=== PATIENT | female | born 1940 | race Caucasian/White ===

== ENCOUNTER → 2017-05-21 | Outpatient (CLI) | payer OTHER, MEDICARE | LOC: BMCIMAGING 11:38 | PROVIDERS: ATTEND Family Medicine | DX: Z13.820 Encounter for screening for osteoporosis (principal); M81.0 Age-related osteoporosis without current pathological fracture ==

== ENCOUNTER → 2017-08-11 | Outpatient (CLI) | payer OTHER, MEDICARE | LOC: BHFA 15:30 | PROVIDERS: ATTEND Internal Medicine | DX: I34.0 Nonrheumatic mitral (valve) insufficiency (principal) ==

== ENCOUNTER → 2017-10-13 | Outpatient (CLI) | payer OTHER, MEDICARE | LOC: BHFA 11:30 | PROVIDERS: ATTEND Internal Medicine Cardiovascular Disease | DX: R07.9 Chest pain, unspecified (principal) ==

== ENCOUNTER 2018-06-04 16:05 | Inpatient (IN) | payer OTHER, MEDICARE ==
--- NOTE | 2018-06-04 16:32 | EDPHY ---
General Time Seen by Provider: 06/04/18 16:15 Narrative: CHIEF COMPLAINT: Knee pain, swelling HISTORY OF PRESENT ILLNESS: Patient presents with complaints of left knee pain, left hip pain, left ankle pain and swelling of the leg. She originally injured her knee on the 25 of May. She was walking her dog, when she became entangled in the lesion of the dog and fell forward. She landed on her left knee while bent. She denies head strike or loss of consciousness. No numbness or tingling. No weakness. She had mild pain over the following few days. She then contacted her physician was evaluated on the 31 of May, with x-ray and DVT studies that reportedly negative for DVT. She did have a superficial thrombophlebitis of the gastroc vein. She says that she has not had improvement, that she has been pursuing MRI of the left knee. She comes in today because she has an abrasion over the left side of the proximal tib-fib that now seems red and possibly infected her. She contacted her primary care physician, who sent her here. She reports that she has been unable to ambulate due to pain left hip bagel.. no fever. No chills. No chest pain or shortness of breath. No other associated constraints or modifying factors for ESTABLISHED ORTHOPEDIST: None REVIEW OF SYSTEMS: Ten systems reviewed and are negative unless otherwise noted in the HPI PAST MEDICAL HISTORY: Prediabetic PAST SURGICAL HISTORY: No recent surgeries SOCIAL HISTORY: Nonsmoker. Lives independently with her spouse. FAMILY HISTORY: Noncontributory EXAMINATION General Appearance: Alert, no distress HEENT: Normocephalic. Atraumatic pupils equal round reactive to light. Cardiovascular: Symmetric DP and PT pulses 2+. Neurological: A&O, light sensory symmetric lower extremities, ankle, knee and great toe strength symmetric. Skin: Warm and dry, no rash. There are 2 small areas of abrasion over the lateral proximal fibula and anterior tibia. These measure approximately 2 cm diameter. There is minimal surrounding erythema. No purulence. No warmth. No fluctuance. No cellulitis appreciated Extremities: Mild tenderness about the left knee, left greater trochanter and the ankle laterally. Unable to range the left hip. She will not fully bear weight on this at this time. No compartment syndrome. There is moderate, 1+ pitting edema to the entire left lower extremity below the knee. Psychiatric: Mood and affect normal DIFFERENTIAL DIAGNOSES: Including but not limited to DVT, superficial thrombophlebitis, sprain, strain, meniscus injury, ACL injury, hip fracture, hip strain, ankle fracture, hip sprain MDM: 4:20 p.m. Ongoing pain and swelling of left lower extremity with patient concern for infection of abrasions that she sustained on the 25 of May. There is minimal surrounding erythema with no obvious signs of infection or cellulitis. I have reviewed the previous x-ray and I have ordered x-ray of the hip and ankle as she has ongoing pain with with no x-ray of these areas yet. She is also unable to ambulate. The DVT study did reveal superficial thrombophlebitis but no DVT study. She has been taking anti-inflammatories. 4:30 p.m. X-ray read by me reveals left femoral neck fracture. Ankle x-ray pending. At this point I have ordered laboratory studies, IV placement she will need admission to the hospital. I will consult Orthopedics and discussed with hospitalist. 4:40 p.m. Case discussed with hospitalist Dr. Eden. he will be admitted to his service. He agrees with repeat of the Doppler study left lower extremity. He would like to discuss further with orthopedic surgeon regarding Lovenox therapy. 5:[address] Cope is at bedside examine the patient. He plans for surgical intervention tomorrow morning as she has NPO status of 4:00 p.m. Today. He agrees that Lovenox is reasonable at this time. Dr. Eden has requested 40 mg subcu. Should she have a DVT study positive, he will add the additional necessary Lovenox. She has been admitted in stable condition to his service. Ultrasound is at bedside at this time. She is in no acute distress. Laboratory studies have been obtained but are pending. SUPERVISION: Patient was independently examined, but I discussed the case with my secondary supervising physician Dr. Sepulveda - History Smoking Status: Former smoker - Objective Vital Signs: Initial Vital Signs Temperature (C) 98.6 F 06/04/18 16:10 Heart Rate 76 06/04/18 16:10 Respiratory Rate 18 06/04/18 16:10 Blood Pressure 157/85 H 06/04/18 16:10 O2 Sat (%) 95 06/04/18 16:10 O2 Delivery Mode Room Air Allergies/Adverse Reactions: cortisone [Cortisone] Allergy (Verified 06/04/18 16:10) Home Medications: Medication Instructions Recorded Naproxen Sodium [Aleve 220 MG (*)] 220 mg PO Q8H 06/04/18 Medications Given: Ondansetron HCl (Zofran Odt) 4 mg PO Q4HRS PRN PRN Reason: Nausea/Vomiting, Use 1st Stop: 12/01/18 18:13 Last Admin: 06/04/18 21:06 Dose: 4 mg Oxycodone HCl (Oxycodone Ir) 5 - 10 mg PO Q3HRS PRN PRN Reason: Pain, Severe Able to Take PO Stop: 06/14/18 18:13 Last Admin: 06/05/18 01:24 Dose: 2.5 mg Discontinued Medications Acetaminophen (Tylenol) 1,000 mg PO Q8H ZIGGY Stop: 12/01/18 18:14 Last Admin: 06/05/18 01:21 Dose: 1,000 mg Cephalexin HCl (Keflex) 500 mg PO EDNOW ONE PRN Reason: Protocol Stop: 06/04/18 16:36 Last Admin: 06/04/18 16:55 Dose: 500 mg Enoxaparin Sodium (Lovenox) 40 mg SC EDNOW ONE Stop: 06/04/18 17:16 Last Admin: 06/04/18 18:16 Dose: 40 mg Morphine Sulfate (Morphine) 2 mg IVP EDNOW ONE Stop: 06/04/18 17:18 Last Admin: 06/04/18 17:20 Dose: 2 mg Departure - Departure Disposition: [facility] Clinical Impression: Fracture of femoral neck, left, closed Qualifiers: Encounter type: initial encounter Qualified Code(s): S72.002A - Fracture of unspecified part of neck of left femur, initial encounter for closed fracture Thrombophlebitis leg superficial Qualifiers: Laterality: left Qualified Code(s): I80.02 - Phlebitis and thrombophlebitis of superficial vessels of left lower extremity Condition: Good
[2018-06-04] MEDS ORDERED: CEPHALEXIN 500 MG CAP PO ONE (16:35)
[2018-06-04] MEDS ORDERED: ENOXAPARIN 40 MG/0.4 ML SYR SC ONE (17:15)
[2018-06-04 17:40] LABS: PLATELET COUNT 198 10^3/uL (150-400)
[2018-06-04 17:52] LABS: INR 1.02 (0.83-1.16); PROTIME(PATIENT) 13.6 SEC (12.0-15.0)
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
[2018-06-04] MEDS ORDERED: ONDANSETRON DISINTEGRATING 4 MG TAB PO PRN (18:14)
[2018-06-04] MEDS ORDERED: ONDANSETRON 4 MG/2 ML VIAL IVP PRN (18:14)
[2018-06-04] MEDS: ACETAMINOPHEN 500 MG TAB PO SCH (18:39)
--- NOTE | 2018-06-04 19:13 | GHP ---
DATE OF ADMISSION: 06/04/2018 HISTORY OF PRESENT ILLNESS: A 78-year-old female with history of prediabetes, mitral valve prolapse, who presents with mechanical fall. She had a mechanical fall on May 25 while walking the dog. She landed on her knee. She was able to walk okay after that, but was having increasing pain with a mbulation and ultimately a couple days after that, she was leaning over to move her milk box and she thought she might have pulled or strained a muscle and has really been struggling to walk since then. She has been using a walker. Finally, she presents today with ongoing pain and diagnosed with a le ft femoral neck fracture. She had increasing swelling in her left leg. She has not had fever, chill s, not had chest pain, cough, or sputum. She does not have a history of exertional chest pain or exe rtional intolerance. The patient saw her primary care physician. She had an ultrasound for the swel ling showing superficial clot. REVIEW OF SYSTEMS: Complete 10-point review of systems conducted and negative except as noted in the HPI. PAST MEDICAL HISTORY: Prediabetes, mitral valve prolapse. ALLERGIES: Cortisone. HOME MEDICATIONS: Naproxen. SOCIAL HISTORY: No tobacco, no alcohol. She is possibly a hoarder on the basis of what her said. FAMILY HISTORY: Reviewed and unremarkable. PHYSICAL EXAMINATION: PRESENTING VITALS: Temp 37, blood pressure 167/85, pulse 76, breathing 18 jean marie es a minute, 95% on room air. GENERAL: In no acute distress. HEENT: Sclerae anicteric. Oropharyn x clear. Mucous membranes are moist. NECK: Supple. No lymphadenopathy or JVD. LUNGS: Clear to a uscultation bilaterally. HEART: S1, S2 without murmur. ABDOMEN: Soft, nontender, nondistended. E XTREMITIES: Left lower extremity is externally rotated and shortened. There is significant edema. There is intact dorsalis pedis pulse. Both her feet are fairly dirt-encrusted. Nurse thought it pos sibly smelled like stool. NEURO: Nonfocal. SKIN: Without rash. LABORATORY/IMAGING DATA: White count 5, hematocrit 35, platelets are 198,000. INR is 1. Sodium 133 , potassium 4.3, chloride 95, bicarb 32, BUN 20, creatinine 0.6, glucose 123. Hip x-ray shows left i ntertrochanteric hip fracture or a left femoral neck fracture. Chest x-ray interpreted by me shows n o acute cardiopulmonary disease. Ankle x-ray is unremarkable. I discussed the case with EFRAIN Martinez, as well as Dr. Amos Cope. ASSESSMENT/PLAN: A 78-year-old female with hip fracture with delayed diagnosis: 1. Hip fracture. The patient will go to the operating room tomorrow. She has received a dose of Lo venox tonight given her longstanding hip fracture and risk for venous thrombosis. This was discussed with Dr. Cope. 2. Preoperative cardiac evaluation. EKG is pending when the patient is able to complete greater priti n 4 METs without any cardiopulmonary symptoms and can proceed to the OR without further workup or int ervention. 3. Metabolic alkalosis. This is uncertain etiology. Will follow. 4. Pain. Scheduled Tylenol, p.r.n. oxycodone. 5. Superficial clot. She had a repeat ultrasound here showing no deep vein thrombosis, superficial thrombus of the left soleal vein. DISPOSITION: Inpatient status. /[id number]/MODL
[2018-06-04] MEDS: oxyCODONE IR 5 MG TAB PO PRN (21:06)
[2018-06-05] MEDS: ACETAMINOPHEN 500 MG TAB PO SCH (01:21)
[2018-06-05] MEDS: oxyCODONE IR 5 MG TAB PO PRN (01:24)
[2018-06-05 04:48] LABS: PLATELET COUNT 202 10^3/uL (150-400)
--- NOTE | 2018-06-05 05:15 | GCON ---
DATE OF CONSULTATION: 06/04/2018 REASON FOR CONSULTATION: Left femoral neck fracture. HPI: The patient is a 78-year-old female who tripped and fell while walking her dog about 10 days ag o. She is having slowly worsening pain since then, difficulty bearing weight and she presented to [facility] emergency room this afternoon. X-rays were obtained, which showed a femoral neck fracture. PRIOR MEDICAL HISTORY: Mitral valve prolapse, prediabetes. ALLERGIES: Cortisone. HOME MEDICATIONS: Naproxen. SOCIAL HISTORY: Denies tobacco or alcohol. REVIEW OF SYSTEMS: No shortness of breath or chest pain. PHYSICAL EXAM: She appears dirty. Feet are crusted in dirt. VITAL SIGNS: In the emergency room are 157/85, heart rate 76, respiratory rate is 18. She is saturating 95% on room air. Temperature is 3 7. GENERAL: Alert and oriented x3. She answers questions appropriately. HEENT: Normocephalic, atr aumatic. Extraocular muscles are intact. CHEST: Clear to auscultation. CARDIOVASCULAR: No murmur . ABDOMEN: Soft, nontender, nondistended. There is no hepatosplenomegaly. EXTREMITIES: Left lowe r extremity externally rotated, shortened. There is some lower extremity edema. Calf is nontender. She is moving her foot well. 1+ dorsalis pedis, posterior tibial pulses. X-RAYS: Two views of the hip: Displaced femoral neck fracture. ASSESSMENT: Left displaced femoral neck fracture. PLAN: She ate just before arriving to the ER so we will plan on surgery tomorrow with a bipolar hip arthroplasty. Risks and benefits including infection, blood clots, were discussed. I reviewed the c ase with Dr. Eden. She does have a superficial phlebitis. We are going to give her a dose of 40 m g of Lovenox tonight, hold it tomorrow, and then she can resume that on postoperative day #1. /[id number]/MODL
[2018-06-05] MEDS ORDERED: NS 1,000 ML IV SCH (07:00)
--- NOTE | 2018-06-05 08:42 | HOSPPROG ---
Hospitalist Progress Note Assessment/Plan: [facility] Patient Name: LEYLA PARKER Rpt#: [id number] Unit Number: [id number] Attending/ER Physician: Cesario Eden MD Patient Type: ADM IN Adm Date/Source: 06/04/18 EMR Discharge Date: Primary Carrier: MEDICARE INPATIENT Patient is a 78 y/o female w hx of prediabetes, MVP who had a mechanical fall. She was walking her dog on May 25 and fell. Her pain was ongoing and she came to the ER and noted to have a left femoral neck fx. Today is my first encounter w the patient, chart reviewed. *left hip fx -OR today with Dr Cope -NPO -fluids -patient says she does well w Tylenol and codeine for pain, other narcotics make her confused *mechanical fall -PT and OT to see her *metabolic alkalosis -check labs in a.m. *superficial thrombus soleal vein on left -she will be on Lovenox post op *dvt prophlaxis: LMWH *plan: recheck labs in a.m., order Tylenol w Codeine, bowel protocol Subjective: Leyla Coburn said pain is ongoing, but not severe. Objective: Vital Signs Temp Pulse Resp BP Pulse Ox 36.8 C 69 15 118/73 97 06/05/18 07:53 06/05/18 07:53 06/05/18 07:53 06/05/18 07:53 06/05/18 07:53 Laboratory Results 06/05/18 04:35 06/05/18 04:35 06/04/18 06/05/18 06/06/18 05:59 05:59 05:59 Output Total 275 350 Balance -275 -350 PT 13.6 SEC (12.0-15.0) 06/04/18 17:15 INR 1.02 (0.83-1.16) 06/04/18 17:15 - Physical Exam Constitutional: no apparent distress, appears nourished, other (slender) Eyes: PERRL Ears, Nose, Mouth, Throat: hearing normal Cardiovascular: regular rate and rhythym Respiratory: no respiratory distress Gastrointestinal: normoactive bowel sounds Skin: warm Musculoskeletal: other (left leg shortened and externally rotated) Neurologic: AAOx3 Psychiatric: interacting appropriately ICD10 Worksheet Patient Problems: Problems Problem Status Onset Fracture of femoral neck, left, closed Acute Thrombophlebitis leg superficial Acute
--- NOTE | 2018-06-05 11:46 | PDMN ---
Medical Necessity Medical necessity: Pt meets IP criteria per MD; est los >2 mn for eval/tx of L hip fx s/p mechanical fall w/metabolic acidosis & superficial thrombus; admit for further monitoring, pre-op cardiac eval, Ortho consult w/surgical intervention, NPO status, IVFs, pain management & therapies; comorbid advanced age, MV prolapse; per H&P & order 06/04/18
--- NOTE | 2018-06-05 12:40 | PDANEPAE ---
ANE History of Present Illness L hip traumatic fx here for ORIF ANE Past Medical History - Cardiovascular History Hx Hypertension: No Hx Arrhythmias: No Hx Chest Pain: No Hx Coronary Artery / Peripheral Vascular Disease: No Cardiovascular History Comment: MVP - Pulmonary History Hx COPD: No Hx Oxygen in Use at Home: No Hx Sleep Apnea: No Sleep Apnea Screening Result - Last Documented: Negative - Endocrine History Hx Diabetes: No - Cancer History Cancer History Comment: anemia - Chronic Pain History Chronic Pain: No ANE Review of Systems Review of Systems: - Exercise capacity Exercise capacity: >=4 METS ANE Patient History - Allergies Allergies/Adverse Reactions: cortisone [Cortisone] Allergy (Verified 06/04/18 16:10) - Home Medications Home medications: home medication list seen and reviewed Home Medications: Naproxen Sodium [Aleve 220 MG (*)] 220 mg PO Q8H 06/04/18 [Last Taken 06/04/18 18:00] - NPO status NPO Status: no food or drink >8 hours NPO Since - Liquids (Date): 06/04/18 NPO Since - Liquids (Time): 00:00 NPO Since - Solids (Date): 06/04/18 NPO Since - Solids (Time): 00:00 - Anes Hx Anes Hx: no prior problems - Smoking Hx Smoking Status: Former smoker - Alcohol Use Alcohol Use: Rarely - Family Anes Hx Family Anes Hx: none ANE Labs/Vital Signs - Labs Result Diagrams: 06/05/18 04:35 06/05/18 04:35 - Vital Signs Blood Pressure: 118/73 Heart Rate: 69 Respiratory Rate: 15 O2 Sat (%): 97 Height: 170.18 cm Weight: 58.967 kg ANE Physical Exam - Airway Neck exam: FROM Mallampati Score: Class 2 Mouth exam: normal dental/mouth exam - Pulmonary Pulmonary: no respiratory distress, clear to auscultation - Cardiovascular Cardiovascular: regular rate and rhythym, no murmur, rub, or gallop - ASA Status ASA Status: II ANE Anesthesia Plan Anesthesia Plan: general endotracheal anesthesia, GA w LMA
[2018-06-05] MEDS ORDERED: BUPIVACAINE/EPI 0.5% 30 ML SDV ONE (12:45)
[2018-06-05] MEDS ORDERED: ceFAZolin 1 GM/5 ML SYR ONE (12:46)
[2018-06-05] MEDS ORDERED: fentaNYL 100 MCG/2 ML INJ ONE ×2 (12:58→15:00)
[2018-06-05] MEDS ORDERED: PROPOFOL 200 MG/20 ML VIAL ONE (12:58)
[2018-06-05] MEDS ORDERED: ceFAZolin 2 GM/DEXTROSE 100 ML IV ONE (13:04)
[2018-06-05] MEDS ORDERED: CEFAZOLIN 2 GM/DEXTROSE/100 ML BAG IV ONE (13:06)
[2018-06-05] MEDS ORDERED: DEXAMETHASONE 4 MG/ML VIAL ONE (14:15)
[2018-06-05] MEDS ORDERED: ONDANSETRON 4 MG/2 ML VIAL ONE ×2 (14:15→15:09)
[2018-06-05] MEDS ORDERED: SUGAMMADEX SODIUM 200 MG/2 ML VIAL IVP ONE (14:22)
[2018-06-05] MEDS ORDERED: ACETAMINOPHEN 500 MG TAB PO PRN (14:46)
[2018-06-05] MEDS ORDERED: oxyCODONE IR 5 MG TAB PO PRN (14:46)
[2018-06-05] MEDS ORDERED: DEXAMETHASONE 4 MG/ML VIAL IVP PRN (14:46)
[2018-06-05] MEDS ORDERED: NALOXONE HCL 0.4 MG/ML INJ IVP PRN (14:46)
[2018-06-05] MEDS ORDERED: ONDANSETRON 4 MG/2 ML VIAL IVP PRN (14:46)
[2018-06-05] MEDS ORDERED: HYDROCODONE/APAP 5/325 TAB PO PRN (14:46)
[2018-06-05] MEDS ORDERED: fentaNYL 100 MCG/2 ML INJ IVP PRN (14:46)
--- NOTE | 2018-06-05 14:47 | POSTANESTH ---
Post Anesthetic Evaluation Cardiovascular Status: Normal, Stable, Similar to Pre-Op Cond Respiratory Status: Normal, Stable, Similar to Pre-op Cond. Level of Consciousness/Mental Status: Can Participate in Eval, Alert and Oriented Pain Control: Adequate, Prn Tx Ordered Nausea/Vomiting Control: Adequate, Prn Tx Ordered Complications Possibly Related to Anesthesia: None Noted
--- NOTE | 2018-06-05 14:52 | POSTOPPROG ---
Post Op Note Date of Operation: 06/05/18 Surgeon: Amos Cope Nutritionalist: feroz blankenship Anesthesiologist: Dinah Anesthesia: GET(General Endotracheal) Pre-op Diagnosis: LT fem neck fracture Post-op Diagnosis: same Indication: displaced hip fx Procedure: LT hemiarthroplasty Findings: displaced fem neck fx Inf/Abcess present in the surg proc area at time of surgery?: No EBL: 100-500 (200 ml) Complications: none
[2018-06-05] MEDS ORDERED: HYDROmorphONE/DILAUDID 1 MG/ML INJ ONE (15:00)
[2018-06-05] MEDS: HYDROmorphONE/DILAUDID 1 MG/ML INJ IVP PRN ×2 (15:03→15:11)
--- NOTE | 2018-06-05 15:18 | GOP ---
DATE OF OPERATION: 06/05/2018 SURGEON: Amos Cope MD UNIFIED COMMUNICATIONS ARCHITECT: Dr. Yehuda Marin. ANESTHESIA: Dr. Robert Nix, general. PREOPERATIVE DIAGNOSIS: Left femoral neck fracture. POSTOPERATIVE DIAGNOSIS: Left femoral neck fracture. PROCEDURE PERFORMED: Hemiarthroplasty, left hip. FINDINGS: ESTIMATED BLOOD LOSS: 200 mL. DESCRIPTION OF PROCEDURE: After appropriate informed consent was obtained, patient taken to the oper ating room, placed supine on the operating table. Time-out was performed. Patient was identified. Correct site was identified. Matched the radiographs that were available in the room. She received 2 g of Ancef preoperatively. Following the induction of general endotracheal tube anesthesia, she wa s positioned in the lateral decubitus position, right side down, on the PEG board. All bony prominen albert well padded. Left hip was prepped and draped in usual sterile fashion. I made a standard manager labor delivery ior incision. Incised the soft tissues. Bleeding was controlled with electrocautery. ITB was incis ed as was the fascia overlying the gluteal muscles. I bluntly dissected down to the external rotator s. The hip was put on slight tension. The external rotators were taken down, tagged for later repai r. The femoral neck fracture was freshened with a saw blade. Head and neck fragments were removed. The wound was irrigated. The acetabulum sized to a size 45. We then broached the femoral canal and broached up to a size 4. Trialed 26 head. This gave us good stability, good jewish of leg erin gths. Trial implants were all removed. The femoral canal incision was irrigated. We then tapped th e final stem into place. Placed the bipolar ball. Reduced the hip a final time. Again good stabili ty leg lengths were equal. The wound was irrigated a final time. The external rotators were repaire d back to the greater trochanter using #2 FiberWire. Superficial layers closed with 0 Vicryl, follow ed by 2-0 Vicryl and skin krystal. I instilled 20 mL of 0.5% Marcaine with epinephrine on the incisi on. Sterile dressing was applied. Abductor wedge was applied. Patient was awakened from anesthesia , taken to recovery room in satisfactory condition. There were no immediate intraoperative complicat ions. James Marin's assistance was required throughout the entire case. COMPLICATIONS: None. DRAINS: None. IMPLANTS USED: A La [place]olade II, 127 degree femur with size 4 head and a 45 outer diameter cup. HISTORY: Leyla Coburn is a 78-year-old female, who fell about 10 days ago while walking her dog. She horner s been at home wandering around. The pain got worse. She presented to the emergency department last evening. She had just eaten before coming in. Found to have a femoral neck fracture. Decision was made to proceed with a bipolar hemiarthroplasty in the morning. /[id number]/MODL
--- NOTE | 2018-06-05 15:37 | ASMTLACE ---
HYUN Acuity / Level of Answers: Yes Care: Did the patient have an inpatient admission? Comorbidities - select Answers: Diabetes (uncontrolled or all that apply controlled) Other Notes: Mitral valve prolapse # of Emergency department Answers: 1-2 visits in the last 6 months Social determinants Answers: Mental health diagnosis (anxiety, depression, pers onality disorders, etc.) Score: 9 Date Signed: 06/05/2018 03:36 PM Electronically Signed By:Maxine Burrows LCSW
[2018-06-05] MEDS ORDERED: LACTULOSE 20 GM/30 ML UDCUP PO PRN (16:09)
[2018-06-05] MEDS ORDERED: MAGNESIUM HYDROXIDE 30 ML UDCUP PO PRN (16:09)
[2018-06-05] MEDS ORDERED: BISACODYL 10 MG SUPP PR PRN (16:09)
[2018-06-05] MEDS: ENOXAPARIN 40 MG/0.4 ML SYR SC SCH (18:09)
[2018-06-05] MEDS: D5W 1/2 NS W/ 20 KCl/L 1,000 ML IV SCH (18:50)
[2018-06-05] MEDS: ACETAMINOPHEN/CODEINE 300/30MG TAB PO PRN (19:21)
[2018-06-05] MEDS: SENNOSIDES/DOCUSATE SODIUM TAB PO SCH (21:24)
[2018-06-06] MEDS: ACETAMINOPHEN 325 MG TAB PO PRN ×2 (02:19→16:36)
[2018-06-06] MEDS: D5W 1/2 NS W/ 20 KCl/L 1,000 ML IV SCH (05:43)
[2018-06-06] MEDS: ACETAMINOPHEN/CODEINE 300/30MG TAB PO PRN ×2 (06:38→23:50)
[2018-06-06] MEDS: ENOXAPARIN 40 MG/0.4 ML SYR SC SCH (09:22)
[2018-06-06] MEDS: POLYETHYLENE GLYCOL 3350 17 GM PKT PO SCH (09:22)
[2018-06-06] MEDS: SENNOSIDES/DOCUSATE SODIUM TAB PO SCH ×2 (09:22→23:37)
--- NOTE | 2018-06-06 09:55 | HOSPPROG ---
Hospitalist Progress Note Assessment/Plan: [facility] Patient Name: LEYLA PARKER Rpt#: [id number] Unit Number: [id number] Attending/ER Physician: Cesario Eden MD Patient Type: ADM IN Adm Date/Source: 06/04/18 EMR Discharge Date: Primary Carrier: MEDICARE INPATIENT Patient is a 78 y/o female w hx of prediabetes, MVP who had a mechanical fall. She was walking her dog on May 25 and fell. Her pain was ongoing and she came to the ER and noted to have a left femoral neck fx. Today is my first encounter w the patient, chart reviewed. *left hip fx -s/p L hip arthroplasty on 06/05 -Tylenol and codeine for pain, other narcotics make her confused -WBAT *mechanical fall -PT and OT to see her *acute blood loss anemia -cont monitoring *superficial thrombus soleal vein on left -she will be on Lovenox post op *dvt prophlaxis: LMWH *plan: recheck h & h, platelets in the morning. DC fluids since she is taking in good po Subjective: Leyla Coburn has no pain unless she is moving. Objective: Vital Signs Temp Pulse Resp BP Pulse Ox 36.9 C 92 16 115/57 L 100 06/06/18 07:50 06/06/18 07:50 06/06/18 07:50 06/06/18 07:50 06/06/18 07:50 Laboratory Results 06/06/18 04:50 06/06/18 04:50 06/05/18 06/06/18 06/07/18 05:59 05:59 05:59 Intake Total 2800 500 Output Total 275 950 Balance -275 1850 500 PT 13.6 SEC (12.0-15.0) 06/04/18 17:15 INR 1.02 (0.83-1.16) 06/04/18 17:15 - Physical Exam Constitutional: no apparent distress, appears nourished, not in pain Eyes: PERRL Ears, Nose, Mouth, Throat: hearing normal Cardiovascular: regular rate and rhythym Respiratory: no respiratory distress Gastrointestinal: normoactive bowel sounds Skin: warm, other (swelling at left hip, left thigh area), No normal color (pale ) Musculoskeletal: generalized weakness Neurologic: AAOx3 Psychiatric: interacting appropriately ICD10 Worksheet Patient Problems: Problems Problem Status Onset Fracture of femoral neck, left, closed Acute Thrombophlebitis leg superficial Acute
--- NOTE | 2018-06-06 10:52 | SOAPPROG ---
SOAP Progress Note Assessment/Plan: Assessment: Plan: 06/06/18 10:51 POD#1 bipolar LT hip post hip precautions x 10 weeks WBAT lovenox dvt proph Subjective: slept o/n pain controlled Objective: dressing c/d/i calf soft leg length equal 5/5 df/pf Vital Signs Temp Pulse Resp BP Pulse Ox 36.9 C 92 16 115/57 L 100 06/06/18 07:50 06/06/18 07:50 06/06/18 07:50 06/06/18 07:50 06/06/18 07:50 Laboratory Results 06/06/18 04:50 06/06/18 04:50 06/05/18 06/06/18 06/07/18 05:59 05:59 05:59 Intake Total 2800 500 Output Total 275 950 Balance -275 1850 500 PT 13.6 SEC (12.0-15.0) 06/04/18 17:15 INR 1.02 (0.83-1.16) 06/04/18 17:15 ICD10 Worksheet Patient Problems: Problems Problem Status Onset Fracture of femoral neck, left, closed Acute Thrombophlebitis leg superficial Acute
[2018-06-07] MEDS: ACETAMINOPHEN 325 MG TAB PO PRN ×3 (05:09→17:37)
[2018-06-07] MEDS: SENNOSIDES/DOCUSATE SODIUM TAB PO SCH ×2 (08:20→21:34)
[2018-06-07] MEDS: POLYETHYLENE GLYCOL 3350 17 GM PKT PO SCH (08:20)
[2018-06-07] MEDS: ENOXAPARIN 40 MG/0.4 ML SYR SC SCH (11:41)
--- NOTE | 2018-06-07 12:40 | SOAPPROG ---
SOAP Progress Note Assessment/Plan: Assessment:POD#2 bipolar LT hip -- doing well PE: Dressing clean and dry DF/PF of foot intact NV intact LLE Calf is soft to compression without pain Plan: Plan for discharge tomorrow with home health. Post hip precautions x 10 weeks WBAT LLE lovenox dvt proph 06/07/18 12:39 Objective: Vital Signs Temp Pulse Resp BP Pulse Ox 36.7 C 88 14 106/56 L 92 06/07/18 07:50 06/07/18 07:50 06/07/18 07:50 06/07/18 07:50 06/07/18 07:50 Laboratory Results 06/07/18 04:32 06/06/18 04:50 06/06/18 06/07/18 06/08/18 05:59 05:59 05:59 Intake Total 2800 1550 Output Total 950 1650 Balance 1850 -100 PT 13.6 SEC (12.0-15.0) 06/04/18 17:15 INR 1.02 (0.83-1.16) 06/04/18 17:15 ICD10 Worksheet Patient Problems: Problems Problem Status Onset Fracture of femoral neck, left, closed Acute Thrombophlebitis leg superficial Acute
--- NOTE | 2018-06-07 15:06 | HOSPPROG ---
Hospitalist Progress Note Assessment/Plan: Patient is a 78 y/o female w hx of prediabetes, MVP who had a mechanical fall. She was walking her dog on May 25 and fell. Her pain was ongoing and she came to the ER and noted to have a left femoral neck fx. Today is my first encounter w the patient, chart reviewed. D/W CM. *left hip fx -s/p L hip arthroplasty on 06/05 -Tylenol and codeine for pain, other narcotics make her confused -WBAT *mechanical fall -PT and OT to see her *acute blood loss anemia -1 unit PRBC today -recheck in am *superficial thrombus soleal vein on left -she will be on Lovenox post op *dvt prophlaxis: LMWH *plan: recheck h & h, platelets in the morning. -plan for DC in am if doing well. Subjective: Feeling well. Pain controlled. still very weak. Objective: Vital Signs Temp Pulse Resp BP Pulse Ox 37.3 C 85 14 112/46 L 94 06/07/18 12:00 06/07/18 12:00 06/07/18 12:00 06/07/18 12:00 06/07/18 12:00 Laboratory Results 06/07/18 04:32 06/06/18 04:50 06/06/18 06/07/18 06/08/18 05:59 05:59 05:59 Intake Total 2800 1550 Output Total 950 1650 Balance 1850 -100 PT 13.6 SEC (12.0-15.0) 06/04/18 17:15 INR 1.02 (0.83-1.16) 06/04/18 17:15 - Physical Exam Constitutional: no apparent distress, appears nourished, uncomfortable Eyes: PERRL, anicteric sclera, EOMI Ears, Nose, Mouth, Throat: moist mucous membranes, hearing normal, ears appear normal Cardiovascular: regular rate and rhythym, No JVD, No edema Respiratory: no respiratory distress, no rales or rhonchi, reduced air movement Gastrointestinal: normoactive bowel sounds, No tenderness, No ascites Skin: warm, normal color, abrasion, No mottled Musculoskeletal: joint tenderness, pain with ROM, muscular tenderness, abnormal gait, generalized weakness Neurologic: AAOx3 Psychiatric: not anxious, not encephalopathic, poor insight, poor judgement ICD10 Worksheet Patient Problems: Problems Problem Status Onset Fracture of femoral neck, left, closed Acute Thrombophlebitis leg superficial Acute
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
--- NOTE | 2018-06-07 17:30 | ASMTCMCOM ---
CM Note CM Note Notes: Discussed case with PT, patient has made some improvement today and was able to walk to commode with walker. Met with patient and to discuss discharge planning. CM explained that the recommendation upon discharge was SNF or at the very least, HHC. Patient, despite much education, continues to refuse any assistance upon discharge. When asked about the potential for home health care, patient stated, 'I have a friend that works for a home care agency that is scheduled to come and help.' Patient refused to have CM call friend or home care agency to discuss needs. It was apparent that was not thrilled with this plan but stated he would be around for the first day or two 26/04 to provide support. also tried to encourage patient to go to rehab or agree to HC, patient continually refused. Patient is also adament that she be discharged on Wednesday. PT will work with patient more on Wednesday with a goal to discharge home. Loan closet list has been provided, states he will try and obtain a walker on Wednesday after work. There is a walker at home that can be utilized if necessary, although it is wide and may not fit in all areas of their home. Plan: Likely home as patient is refusing all services/assistance from [facility]. Date Signed: 06/07/2018 05:29 PM Electronically Signed By:Antonina Weiss RN
[2018-06-07] MEDS: ACETAMINOPHEN/CODEINE 300/30MG TAB PO PRN (23:05)
[2018-06-08] MEDS: ACETAMINOPHEN 325 MG TAB PO PRN ×3 (03:04→16:14)
[2018-06-08] MEDS: SENNOSIDES/DOCUSATE SODIUM TAB PO SCH (09:17)
[2018-06-08] MEDS: POLYETHYLENE GLYCOL 3350 17 GM PKT PO SCH (09:17)
[2018-06-08 11:53] VITALS: BP 121/67
[2018-06-08] MEDS: ENOXAPARIN 40 MG/0.4 ML SYR SC SCH (13:13)
--- NOTE | 2018-06-08 14:40 | SOAPPROG ---
SOAP Progress Note Assessment/Plan: Assessment: POD#2 bipolar LT hip -- doing well PE: Dressing clean and dry DF/PF of foot intact NV intact LLE Calf is soft to compression without pain Plan: Plan for discharge today or tomorrow if cleared by hospitalist Post hip precautions x 10 weeks WBAT LLE lovenox dvt proph 06/07/18 12:39 06/08/18 14:38 Objective: Vital Signs Temp Pulse Resp BP Pulse Ox 37.0 C 68 18 121/67 H 95 06/08/18 11:52 06/08/18 11:52 06/08/18 11:52 06/08/18 11:52 06/08/18 11:52 Laboratory Results 06/08/18 08:20 06/06/18 04:50 06/07/18 06/08/18 06/09/18 05:59 05:59 05:59 Intake Total 1550 1400 Output Total 1650 900 300 Balance -100 500 -300 PT 13.6 SEC (12.0-15.0) 06/04/18 17:15 INR 1.02 (0.83-1.16) 06/04/18 17:15 ICD10 Worksheet Patient Problems: Problems Problem Status Onset Fracture of femoral neck, left, closed Acute Thrombophlebitis leg superficial Acute
--- NOTE | 2018-06-08 15:30 | GDS ---
DISCHARGE DIAGNOSES: 1. Left hip fracture. 2. Mechanical fall. 3. Acute blood loss anemia. 4. Superficial thrombus. CONSULTATIONS: Orthopedics. PHYSICAL EXAM: GENERAL: The patient is alert. VITAL SIGNS: Afebrile at 37, pulse 68, respiratory rate is 18, blood pressure is 121/67. She is saturating 95% on room air. I have seen and evaluated the patient on the day of discharge. HOSPITAL COURSE: The patient is a 78-year-old female, who presents to the emergency room with compla ints of left hip and ankle pain. She was evaluated and diagnosed with: 1. Left hip fracture. During this hospitalization, she received an arthroplasty performed on [address] Cope. She is weightbearing as tolerated. She will continue physical therapy after d isposition. 2. Mechanical fall. Physical therapy and occupational therapy have evaluated the patient. 3. Acute blood loss anemia. She has been transfused 2 units of packed red blood cells during this h ospitalization. It is recommended she follow up with her primary care provider, Sharmila Escobar, for further laboratory evaluations this week. 4. Superficial thrombus. We will continue her Lovenox at the time of disposition. A prescription h as been provided for Lovenox injections. DISCHARGE DISPOSITION: The patient will be discharged home independently. I have strongly advised a gainst this as well as the case managers has. The patient is adamant about not going to a skilled oli sing facility and going home independently. She has also been offered home health care, which she is adamantly refusing. The patient's is agreeable to take her home. I feel that this is a ris k for her. However, she is able to make her own decisions, and her is in support of her ney anguiano. I have educated the patient at length with regard to this increased risk being discharged home . She states that she understands this and is willing to take this risk. There are no pending studi es. DISCHARGE MEDICATIONS: Please refer to the EMR form. Lovenox has been provided for the patient at t he time of disposition. FOLLOWUP: Will be with Sharmila Escobar, the patient's primary care provider, as well as Dr. Cope of Orthopedics. I have spent greater than 35 minutes in the care, coordination, and management of this patient's disp osition. /[id number]/MODL
--- NOTE | 2018-06-08 16:31 | ASMTCMCOM ---
CM Note CM Note Notes: Pt medically stable for d/c home with . Pt still adamantly declining SNF/HHC despite [facility] recommendation for SNF/HHC. Pt is adela to make leti care decisions. Date Signed: 06/08/2018 04:30 PM Electronically Signed By:SHYLA West
== END 2018-06-08 18:34 | disposition home or self-care (01) | DRG 470 ==
LOC: F3N 18:20
PROVIDERS: ADMIT Internal Medicine; ATTEND Internal Medicine
PROC: 0SRS0JZ Replacement of Left Hip Joint, Femoral Surface with Synthetic Substitute, Open Approach (ICD-10-PCS; principal; 2018-06-05 12:30)
PROC: 30233N1 Transfusion of Nonautologous Red Blood Cells into Peripheral Vein, Percutaneous Approach (ICD-10-PCS; 2018-06-07)
DX: S72.002A Fracture of unspecified part of neck of left femur, initial encounter for closed fracture (principal); W01.0XXA Fall on same level from slipping, tripping and stumbling without subsequent striking against object, initial encounter; I82.812 Embolism and thrombosis of superficial veins of left lower extremity; R73.03 Prediabetes; I34.1 Nonrheumatic mitral (valve) prolapse; E87.3 Alkalosis; D62 Acute posthemorrhagic anemia; Y92.9 Unspecified place or not applicable; Y93.K1 Activity, walking an animal
CPT/HCPCS: 96374; 97110-GP; 97116-GP; 97161-GP; 97530-GP; G8978-GP-CK; G8979-GP-CJ; G8980-GP-CI; J0690; J1100; J1170; J1650; J2270; J2405; J2704; J3010; P9016

== ENCOUNTER 2018-06-11 16:42 | Emergency (ER) | payer OTHER, MEDICARE ==
[2018-06-11 16:49] VITALS: BP 124/69
[2018-06-11] MEDS ORDERED: CEPHALEXIN 500 MG CAP PO ONE (17:31)
--- NOTE | 2018-06-11 17:41 | EDPHY ---
H & P Stated Complaint: left leg wound check Time Seen by Provider: 06/11/18 17:19 HPI/ROS: CHIEF COMPLAINT: Wound infection HISTORY OF PRESENT ILLNESS: The patient is a 78-year-old female who has abrasions to her left lower leg that occurred about 2 weeks ago. She became concerned because a small amount of erythema developed around 1 of them and some small yellowish discharge. No fevers. No warmth. No swelling. Overall her wounds are improving. She does have chronic leg edema and borderline diabetes. Severity: Moderate Modifying factors: None REVIEW OF SYSTEMS: Constitutional: denies: chills, fever, recent illness, recent injury EENTM: denies: blurred vision, double vision, nose congestion Respiratory: denies: cough, shortness of breath Cardiac: denies: chest pain, irregular heart rate, lightheadedness, palpitations Gastrointestinal/Abdominal: denies: abdominal pain, diarrhea, nausea, vomiting, blood streaked stools Genitourinary: denies: dysuria, frequency, hematuria, pain Musculoskeletal: denies: joint pain, muscle pain Skin: See HPI Neurological: denies: headache, numbness, paresthesia, tingling, dizziness, weakness Hematologic/Lymphatic: denies: blood clots, easy bleeding, easy bruising Immunologic/allergic: denies: HIV/AIDS, transplant 10 systems reviewed and negative except as noted EXAM: GENERAL: Well-appearing, well-nourished and in no acute distress. HEAD: Atraumatic, normocephalic. EYES: Pupils equal round and reactive to light, extraocular movements intact, sclera anicteric, conjunctiva are normal. ENT: TMs normal, nares patent, oropharynx clear without exudates. Moist mucous membranes. NECK: Normal range of motion, supple without lymphadenopathy or JVD. LUNGS: Breath sounds clear to auscultation bilaterally and equal. No wheezes rales or rhonchi. HEART: Regular rate and rhythm without murmurs, rubs or gallops. ABDOMEN: Soft, nontender, normoactive bowel sounds. No guarding, no rebound. No masses appreciated. BACK: No CVA tenderness, no spinal tenderness, step-offs or deformities EXTREMITIES: Normal range of motion, 2+ pitting edema. No clubbing or cyanosis. NEUROLOGICAL: Cranial nerves II through XII grossly intact. Normal speech, normal gait. 5/5 strength, normal movement in all extremities, normal sensation , normal reflexes PSYCH: Normal mood, normal affect. SKIN: 2 quarter-sized lesions to her left lower leg. 1 of them has a small erythematous margin. Some serosanguineous fluid can be obtained with compression. Does not appear overtly infected. Source: Patient, Family - Personal History Current Tetanus/Diphtheria Vaccine: Yes Current Tetanus Diphtheria and Acellular Pertussis (TDAP): Yes Tetanus Vaccine Date: < 10 years - Medical/Surgical History Hx Asthma: No Hx Chronic Respiratory Disease: No Hx Diabetes: No Hx Cardiac Disease: Yes Hx Renal Disease: No Hx Cirrhosis: No Hx Alcoholism: No Hx HIV/AIDS: No Hx Splenectomy or Spleen Trauma: No Other PMH: mitral valve prolapse, thyroidectomy, umbillical hernia, left hip replacement - Family History Significant Family History: No pertinent family hx - Social History Smoking Status: Former smoker Alcohol Use: None Constitutional: Initial Vital Signs Temperature (C) 37.3 C 06/11/18 16:44 Heart Rate 100 06/11/18 16:44 Respiratory Rate 18 06/11/18 16:44 Blood Pressure 124/69 H 06/11/18 16:44 O2 Sat (%) 96 06/11/18 16:44 O2 Delivery Mode Room Air Allergies/Adverse Reactions: cortisone [Cortisone] Allergy (Verified 06/11/18 16:44) Home Medications: Medication Instructions Recorded Acetaminophen [Tylenol 325mg (*)] 650 mg PO Q6HRS PRN tab 06/08/18 Enoxaparin [Lovenox 40 MG (*)] 40 mg SC DAILY #10 syr 06/08/18 Polyethylene Glycol 3350 [Miralax 17 gm PO DAILY pkt 06/08/18 17 gm (*)] Cephalexin [Keflex] 500 mg PO TID #21 cap 06/11/18 TYLENOL #3 06/11/18 Medical Decision Making ED Course/Re-evaluation: It is difficult to tell whether not the patient has an early wound infection. It is not warm to the touch or purulent. We discussed options. Patient would prefer to start antibiotics now. I believe that this is reasonable because of her high risk comorbidities. She will follow up with Dr. Cope on Wednesday as previously planned. Differential Diagnosis: Partial list of the Differential diagnosis considered include but were not limited to; wound infection, wound care and although unlikely based on the history and physical exam, I also considered cellulitis, abscess, sepsis. I discussed these differential diagnoses and the plan with the patient as well as the usual and expected course. The patient understands that the diagnosis is provisional and that in medicine we are not always correct and that further workup is often warranted. Usual and customary warnings were given. All of the patient's questions were answered. The patient was instructed to return to the emergency department should the symptoms at all worsen or return, otherwise to followup with the physician as we discussed. - Data Points Medications Given: Discontinued Medications Cephalexin HCl (Keflex) 500 mg PO EDNOW ONE PRN Reason: Protocol Stop: 06/11/18 17:32 Last Admin: 06/11/18 17:35 Dose: 500 mg Departure - Departure Disposition: Home, Routine, Self-Care Clinical Impression: Wound infection Condition: Fair Instructions: Cephalexin (By mouth), Wound Infection (ED) Referrals: Sharmila Escobar MD [Primary Care Provider] - As per Instructions Amos Cope MD [Medical Doctor] - 2-3 days, call for appt. (as arranged) Prescriptions: Cephalexin [Keflex] 500 mg PO TID #21 cap
== END 2018-06-11 17:49 | disposition home or self-care (01) ==
DX: L08.9 Local infection of the skin and subcutaneous tissue, unspecified (principal); S80.812D Abrasion, left lower leg, subsequent encounter

== ENCOUNTER → 2018-10-05 | Outpatient (CLI) | payer OTHER, MEDICARE | LOC: BHFA 16:15 | PROVIDERS: ATTEND Internal Medicine Cardiovascular Disease | DX: R60.9 Edema, unspecified (principal) ==